=== PATIENT | female | born 1965 | race African-American/Black ===

== ENCOUNTER 2018-05-13 10:09 | Emergency (ER) | payer OTHER ==
[~2018-05-13] VITALS: Ht 167.6 cm; Wt 75.3 kg
== END 2018-05-13 10:24 | disposition home or self-care (01) ==
LOC: ER 10:09
DX: L25.9 Unspecified contact dermatitis, unspecified cause (principal); E78.00 Pure hypercholesterolemia, unspecified; Z91.013 Allergy to seafood; Z91.041 Radiographic dye allergy status
CPT/HCPCS: A4663